=== PATIENT | male | born 1945 | race Caucasian/White ===

== ENCOUNTER 2020-11-15 01:35 | Inpatient (IN) | payer OTHER ==
[~2020-11-15] VITALS: Ht 182.9 cm; Wt 64.2 kg
[2020-11-15] VITALS (10 sets, daily range): BP systolic 108–140; BP diastolic 45–66
[~2020-11-15 01:35] MED LIST: UNASYN 3 GM VIAL3 G1 IV
[2020-11-15 03:11] LABS: LYMPHOCYTES 9.7 % (24.0-44.0); RDW 14.6 % (10.5-14.5)
[2020-11-15 03:13] LABS: ABSOLUTE NEUTROPHILS 9.3 thou/uL (1.4-8.2); BASOPHILS 0.8 % (0.0-2.0); EOSINOPHILS 0.9 % (0.0-3.0); HEMOGLOBIN 6.6 gm/dL (14.0-18.0); MCH 29.7 pg (26.0-34.0); MCHC 34.1 g/dL (28.0-37.0); MCV 87.3 fL (80.0-100.0); MONOCYTES 5.9 % (1.0-8.0); PLATELET COUNT 583 thou/uL (150-400); POLYS 82.7 % (36.0-66.0); RBC 2.21 mil/uL (4.50-6.00); WBC 11.2 thou/uL (4.0-11.0)
[2020-11-15 03:14] LABS: CALCIUM 8.9 mg/dL (8.5-10.1); CREATININE 2.8 mg/dL (0.7-1.3); POTASSIUM 4.3 mmol/L (3.5-5.1)
[2020-11-15 03:20] LABS: ALBUMIN 2.1 g/dL (3.4-5.0); TOTAL BILIRUBIN 0.6 mg/dL (0.2-1.0); TOTAL PROTEIN 7.9 g/dL (6.4-8.2)
[2020-11-15 03:23] LABS: HEMATOCRIT 19.3 % (42.0-52.0)
[2020-11-15 05:16] LABS: INR 1.19; PROTIME 12.9 Seconds (10.5-12.1)
--- NOTE | 2020-11-15 07:17 | NUR ---
PT ARRIVED TO THE UNIT AT AROUND 0545 HRS. ORIENTED TO ROOM, STAFF AND USE OF CALL LIGHT. HE IS ALERT AND ORIENTED X 4. CONSENTS SIGNED. IV ABTS INFUSING.FALL ED PROVIDED, PREC IN PLACE.DENIES PAIN.VSS.REPORT GIVEN TO SHANNON CONWAY RN AT AROUND 0700 HRS.
[2020-11-15 09:52] LABS: FOLIC ACID 17.1 ng/mL (8.6-58.9)
[2020-11-15 11:17] LABS: HEMOGLOBIN 6.7 gm/dL (14.0-18.0)
[2020-11-15 11:19] LABS: HEMATOCRIT 20.9 % (42.0-52.0)
[2020-11-15 11:30] LABS: % SATURATION 12 % (20-39); IRON 14 ug/dL (65-175); TIBC 120 ug/dL (250-450)
--- NOTE | 2020-11-15 12:07 | NUR ---
Assumed pt care at 7am.Pt in bed alert and oriented x4. Assessment completed. vss. Pt informed about receiving blood tranfusion today. He wanted to talk to the doctor before giving blood. He later said he doesn't want antibiotic eithr po or iv. Addis shell shop supervisor here. Order noted. Consult called to doctors and message left. Blood transfusion started at 1105. No further c/o. Will continue to monitor.
--- NOTE | 2020-11-15 15:25 | NUR ---
ASSUMED PT CARE AT 1500. PT IS ALERT & ORIENTED X4. PT HAS IV SITE ON R AC AND L AC. PT IS ON TELE MONITOR ON. PT USES URINAL. PT IS ACCUCHECK ACHS. WILL CONTINUE TO MONITOR PT. FOLLOW POC.
[2020-11-15 16:46] LABS: HEMOGLOBIN 7.7 gm/dL (14.0-18.0)
--- NOTE | 2020-11-16 02:51 | NUR ---
ASSESSED AT START OF SHIT. PT RESTING IN BED. DENIES PAIN, N/V. IV INTACT FLUIDS INFUSING. CRITICAL BLOOD CULTURES GRAM POSITIVE COCCI ONCALL POT PRESS OPERATOR NOTIVE. PT ON IV ABX. FALL PREC IN PLACE AND URINAL AT BEDSIDE.
[2020-11-16 05:07] LABS: ABSOLUTE NEUTROPHILS 6.9 thou/uL (1.4-8.2); BASOPHILS 0.4 % (0.0-2.0); EOSINOPHILS 1.6 % (0.0-3.0); HEMATOCRIT 22.2 % (42.0-52.0); HEMOGLOBIN 7.5 gm/dL (14.0-18.0); LYMPHOCYTES 11.7 % (24.0-44.0); MCH 30.1 pg (26.0-34.0); MCV 88.7 fL (80.0-100.0); MONOCYTES 5.4 % (1.0-8.0); POLYS 80.9 % (36.0-66.0); RDW 13.9 % (10.5-14.5); WBC 8.6 thou/uL (4.0-11.0)
[2020-11-16 05:42] LABS: PLATELET COUNT 423 thou/uL (150-400)
[2020-11-16 05:55] LABS: CALCIUM 8.3 mg/dL (8.5-10.1); CREATININE 2.7 mg/dL (0.7-1.3); POTASSIUM 4.6 mmol/L (3.5-5.1)
[2020-11-16 08:19] VITALS: BP 132/71
--- NOTE | 2020-11-16 14:17 | NUR ---
Case opened to follow for dc planning. Consult rec'd that pt is homeless. Meter Reading Clerk visited with the pt at bedside and he is a&ox4. He lives in a hotel 6 as it is more affordable than rent. He struggles financially. He use [employer] for transport or has his sons ban/leena bring food by. He does not drive. 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 He is being treated for bacteremia. MRI rt foot pending. Nursing to add therapy evals but prior to admission the pt was indep with gait and adl's and does not use any dme. He has a cell phone and public policy coordinator at bedside and notes he has updated his sons. They are his emergency contacts if needed. Possible need for hh/dme or SNF discussed. He is not interested in SNF or ltc placement at this time but will let cm know if he decides otherwise. He may need a ride at dc. He uses [facility]. DC time frame is uncertain. Cm to follow along for possible dme or hh referral.
--- NOTE | 2020-11-16 17:08 | NUR ---
ASSUMED CARE OF PT AT 0700 THIS MORNING. PT IS A/OX4 HAVING PAIN FROM CELLULITIS IN RT FOOT. RT FOOT HAS GREAT TOE AMPUTATION. PT DOESN'T SPEAK MUCH AND DOES NOT LIKE TO INTERACT. ASSESSMENTS NOTED IN CHART AND OTHERWISE UNREMARKABLE. CALL LIGHT AND OTHER NEEDS ARE WITHIN REACH. FALL PRECAUTIONS ARE WITHIN PLACE. PT HAS MRI SCHEDULED THIS MORNING. IV IN RT AC WITH NS AT 100ML/HR. MEDS AND TX GIVEN NEEDED AND SCHEDULED. WILL MONITOR AND NOTE ANY CHANGES.
[2020-11-16 17:16] VITALS: BP 137/65
[2020-11-16 20:00] VITALS: BP 130/65
[2020-11-17 01:06] LABS: GLYCOHEMOGLOBIN (HGB A1C) 6.7 % (4.8-5.6)
--- NOTE | 2020-11-17 02:19 | NUR ---
ASSESSED AT START OF SHIFT. PT RESTING IN BED. IV INTACT AND FLUIDS INFUSING. URINAL AT BEDSIDE. PT DENIES PAIN, N/V. FALL PREC IN PLACE AND CALL LIGHT AT REACH. WILL CONT TO MONITOR.
[2020-11-17 03:50] VITALS: BP 136/67
[2020-11-17 05:50] LABS: ABSOLUTE RETIC COUNT 0.0324 10^6/uL; OBSERVED RETIC COUNT 0.91 % (0.6-2.6)
[2020-11-17 07:34] VITALS: BP 134/51
--- NOTE | 2020-11-17 10:31 | 2DMMODE ---
[facility] [address] [place] [address] 2 D/M-MODE ECHOCARDIOGRAM Name: SAUD FITZGERALD Room #: 433-I ADM IN ..#: [id number] Admission: 11/15/20 Attend Phys: Ramon Sheehan MD Discharge: Date of : 43 Report #: [id number] THIS REPORT FOR: cc: [facility] - Clinic physician unknown [facility] - Clinic physician unknown Hansel Cr MD [facility] ~ APPROVED REPORT Study performed: 11/17/2020 09:39:44 EXAM: Comprehensive 2D, Doppler, and color-flow Echocardiogram Patient Location: Bedside Room #: [facility] Status: routine BSA: 1.85 HR: 63 bpm BP: 136/67 mmHg Rhythm: NSR Other Information Study Quality: Adequate Indications Diabetes Bacteremia 2D Dimensions IVC: 16.00 mm Volumes Left Atrial Volume (Systole) Single Plane 4CH: 33.75 mL Single Plane 2CH: 46.03 mL LA ESV Index: 23.00 mL/m2 Aortic Valve AoV Peak Connor.: 1.27 m/s AO Peak Gr.: 6.42 mmHg LVOT Max P.59 mmHg LVOT Max V: 1.07 m/s Mitral Valve E/A Ratio: 0.9 MV Decel. Time: 323.22 ms MV E Max Connor.: 1.09 m/s MV A Connor.: 1.15 m/s [facility] [address] [place] [address] 2 D/M-MODE ECHOCARDIOGRAM Name: SAUD FITZGERALD Room #: 433-I ADM IN [facility].#: [id number] Admission: 11/15/20 Attend Phys: Ramon Sheehan, Discharge: Date of : 43 Report #: [id number] MV PHT: 93.73 ms IVRT: 106.11 ms Pulmonary Vein P Vein S: 0.81 m/s P Vein A: 0.34 m/s P Vein D: 0.52 m/s P Vein A Dur.: 120.0 msec P Vein S/D Ratio: 1.56 Left Ventricle The left ventricle is normal size. There is normal LV segmental wall motion. There is normal left ventricular wall thickness. Left ventricular systolic function is normal. The left ventricular ejection fraction is within the normal range. LVEF is 55-60%. Mild diastolic dysfunction Right Ventricle The right ventricle is normal size. The right ventricular systolic function is normal. Atria The left atrium size is normal. The right atrium size is normal. Aortic Valve The aortic valve is normal in structure. No aortic regurgitation is present. There is no aortic valvular stenosis. Mitral Valve The mitral valve is normal in structure. Mild mitral regurgitation. No evidence of mitral valve stenosis. Tricuspid Valve The tricuspid valve is normal in structure. There is no tricuspid valve regurgitation noted. Pulmonic Valve The pulmonary valve is normal in structure. There is no pulmonic valvular regurgitation. Great Vessels The aortic root is normal in size. IVC is normal in size and collapses >50% with inspiration. Pericardium There is no pericardial effusion. [facility] [address] [place] [address] 2 D/M-MODE ECHOCARDIOGRAM Name: SAUD FITZGERALD Room #: 433-I [facility] IN [facility]#: [id number] Admission: 11/15/20 Attend Phys: Ramon Sheehan, Discharge: Date of : 43 Report #: [id number] <Conclusion> Left ventricular systolic function is normal. There is normal LV segmental wall motion. LVEF is 55-60%. Mild diastolic dysfunction The aortic valve is normal in structure. No aortic regurgitation or stenosis The mitral valve is normal in structure. Mild mitral regurgitation. Pulmonary artery pressure could not be reliably ascertained There is no pericardial effusion. <ELECTRONICALLY SIGNED> By: Hansel Cr MD, FACC 11/17/20 103 30 103 Hansel Cr MD, FACC /INF
[2020-11-17 11:02] LABS: CALCIUM 7.8 mg/dL (8.5-10.1); CREATININE 2.2 mg/dL (0.7-1.3); POTASSIUM 4.7 mmol/L (3.5-5.1)
--- NOTE | 2020-11-17 11:02 | NUR ---
ON-GOING ASSESSMENT: CM REVIEWED CHART. PT REMAINS ON IV ANBX AT THIS TIME AND REPEAT CULTURES ARE PENDING. ID MANAGING IV ANBX. PT IS TO HAVE AN ECHO TODAY. PT IS HOPING TO RETURN BACK TO HIS HOTEL 6 AT THE TIME OF DISCHARGE. CM WILL CONTINUE TO FOLLOW TO ASSIST NEEDED AND AWAITING PHYSICAL THERAPY EVAL TO DETERMINE IF HE HAS AND DME/HH NEEDS.
[2020-11-17 11:58] VITALS: BP 144/69
--- NOTE | 2020-11-17 12:22 | HC ---
[facility] [place] [address] [place] [address] CONSULTATION Name: SAUD FITZGERALD Room #: 433-I ADM IN .R.#: [id number] Admission: 11/15/20 Attend Phys: Ramon Sheehan MD Discharge: Date of : 43 Report #: [id number] THIS REPORT FOR: cc: [facility] - Clinic physician unknown [facility] - Clinic physician unknown Tristan Arnold MD ~ DATE OF SERVICE: 11/16/2020 INFECTIOUS DISEASE CONSULTATION DATE OF CONSULTATION: 11/16/2020 ATTENDING PHYSICIAN: Dr. Ramon Sheehan REASON FOR EVALUATION: Deep seated infection involving the right foot. HISTORY OF PRESENT ILLNESS: The patient examined. This is a 75-year-old gentleman with a history of diabetes mellitus. 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 He notes he has had previous great and second toe amputations as well who had increasing redness, pain, described as normal sensation over 2-3 days prior to his presentation, he had some low-grade temperature elevations and significant pulmonary related complaints. No GI issues. Initial evaluation showed hemoglobin of 6.6, did receive transfusion. Lactic acid 0.7, elevated creatinine at 2.8, albumin of 2.1, markedly elevated CRP. Coronavirus testing was negative. Venous Dopplers showed evidence of DVT. Plain films followed up by MRI of the foot showed multifocal areas of marrow edema, base of the proximal diaphysis of the 2nd through 4th metatarsals, base of the fifth metatarsal was felt to be more typical of neuropathic changes. It is notable clinically as a Charcot joint versus osteomyelitis. At the time of admission, blood cultures were collected 04/05 with growth of Staphylococcus aureus. There is some evidence may have arterial occlusive disease as well, so empirically started on combination therapy with Zosyn and vancomycin. ALLERGIES: SITAGLIPTIN. CURRENT MEDICATIONS: Include, pantoprazole, vancomycin, Zosyn, hydrocodone, ondansetron as needed. PAST MEDICAL HISTORY: As described above, diabetes mellitus complicated by chronic renal failure and vasculopathy, also has Charcot changes and previous toe amputations on the right, trigeminal neuralgia, previous cholecystectomy, recurrent MRSA infections. SOCIAL HISTORY: Nonsmoker, no ethanol. [address] [address] CONSULTATION Name: SAUD FIT[facility]GERALD [facility].#: [id number] Admission: 11/15/20 Attend Phys: Ramon Sheehan MD Discharge: Date of : 43 Report #: [id number] FAMILY HISTORY: Noncontributory. REVIEW OF SYSTEMS: Otherwise, unremarkable. PHYSICAL EXAMINATION: GENERAL: Appears somewhat chronically ill, undernourished. He is at least mildly encephalopathic, mild to moderate distress. VITAL SIGNS: Temperature 98.4, pulse 64, respirations 16, blood pressure 132/71. SKIN: Warm, dry, no rashes. HEENT: Normocephalic. Extraocular muscles intact. NECK: Supple. LUNGS: Clear to auscultation bilaterally. HEART: Regular, borderline bradycardic. I do not appreciate a murmur. ABDOMEN: Soft, nondistended, nontender. EXTREMITIES: Distal right lower extremity has a well-healed amputation site. There is a moderate degree of surface inflammation noted as manifested by erythema and edema. There is no evidence of ulcers or bullous lesions at this point. GENITOURINARY AND RECTAL: Deferred. LABORATORY DATA: MRI of the foot as described above. Blood cultures / with gram-positive cocci confirmed to be Staph aureus. Electrolytes: Sodium 133, potassium 4.6, chloride 101, bicarbonate 17, anion gap of 15, BUN and creatinine 50 and 2.7, glucose of 167. CBC: White count of 8.6, H and H 7.5 and 22. 2, platelets of 423. Ferritin elevated at 1569. Procalcitonin 0.65. ASSESSMENT AND PLAN: Suspected deep infection involving the right foot. It is difficult to ascertain on CT whether there is a component of osteomyelitis, but it is a Staphylococcus aureus septicemia. We will continue therapy with vancomycin pending further susceptibilities. We will also repeat blood cultures noted. Surgery evaluation awaiting test results, seems disinclined to do any procedure at this time. We will continue to monitor expectantly at risk for clinical deterioration and distal seeding of infection ____ occult pyogenic infection. <ELECTRONICALLY SIGNED> By: Tristan Arnold MD 11/17/20 1222 [id number] [id number] Tristan Arnold MD /nt
--- NOTE | 2020-11-17 15:50 | NUR ---
PT ASSESSED AT START OF SHIFT. STATES FEELING BETTER. POSITIVE FOR MRSA IN THE BLOOD. ISOLATION STARTED. NO C/O FOOT PAIN. SOME SWELLING NOTED. DR. HECTOR IN TO SEE PT AND PLAN FOR DISCHARGE ANTIBIOTICS. PT WORKED W/ THERAPY AND DID WELL.
[2020-11-17 16:50] VITALS: BP 151/72
[2020-11-17 20:03] VITALS: BP 143/66
[2020-11-17 22:06] LABS: IgA 649 mg/dL (61-437); IgG 773 mg/dL (603-1613); IgM 51 mg/dL (15-143)
--- NOTE | 2020-11-18 03:51 | NUR ---
PT ALERT AND ORIENTED.UP WITH SBA. DENIES PAIN. DEPPRESSED ABOUT HAVING SURGERY TO HIS FOOT.PT NPO AFTER MIDNOC FOR I/D OF R FOOT.FOOT WITH SWELLING AND ERYTHEMA.ROOM AIR.
[2020-11-18 05:39] LABS: ABSOLUTE NEUTROPHILS 6.2 thou/uL (1.4-8.2); HEMOGLOBIN 6.7 gm/dL (14.0-18.0); MONOCYTES 5.9 % (1.0-8.0)
[2020-11-18 05:41] LABS: BASOPHILS 0.4 % (0.0-2.0); EOSINOPHILS 0.8 % (0.0-3.0); HEMATOCRIT 20.1 % (42.0-52.0); LYMPHOCYTES 13.2 % (24.0-44.0); MCH 29.6 pg (26.0-34.0); MCHC 33.5 g/dL (28.0-37.0); MCV 88.2 fL (80.0-100.0); PLATELET COUNT 387 thou/uL (150-400); POLYS 79.7 % (36.0-66.0); RBC 2.28 mil/uL (4.50-6.00); RDW 13.6 % (10.5-14.5); WBC 7.8 thou/uL (4.0-11.0)
[2020-11-18 07:12] LABS: ALBUMIN 1.5 g/dL (3.4-5.0); CALCIUM 7.9 mg/dL (8.5-10.1); CREATININE 2.1 mg/dL (0.7-1.3); POTASSIUM 4.3 mmol/L (3.5-5.1); TOTAL BILIRUBIN 0.4 mg/dL (0.2-1.0); TOTAL PROTEIN 6.5 g/dL (6.4-8.2)
[2020-11-18 08:07] LABS: HEMOGLOBIN 6.9 g/dL (13.0-17.7)
[2020-11-18 08:16] VITALS: BP 147/67
--- NOTE | 2020-11-18 12:06 | NUR ---
ASSUMED PT CARE AROUND 0700. PT ALERT X ORIENTED X 4. ON ROOM AIR, VOIDS/URINALS. IV RT AC/NS/100MLS/HR. ON ISOLATION FOR MRSA. NPO SINCE MIDNIGHT FOR PROCEDURE. ACHS.NO CODE.PT'S HB LEVEL 6.7, BLOOD TRANSFUSION ORDERED, BLOOD BANK CALLED AT 1145 SAYING BLOOD IS READY, BUT PATIENT WENT DOWNSTAIRES FOR PROCEDURE AROUND 1130. RN ENQUIRED WITH THE PODIATIST REGARDING BLOOD TRANSFUSION, SAID, NOT NECESSARY TO BE GIVEN AT THE FLOOR BEFORE THE PROCEDURE, BLOOD TRANSFUSION CONSENT SIGNED AND TOOK DOWNSTAIRS WHEN THE PT WENT FOR THE PROCEDURE.
--- NOTE | 2020-11-18 12:15 | NUR ---
ON-GOING ASSESSMENT: CM REVIEWED CHART AND SPOKE WITH ATTENDING. PER ATTENDING PT WILL REMAIN HERE THROUGH THE WEEKEND. PT IS GETTING I AND D TODAY AND REMAINS ON IV ANBX. CM WILL CONTINUE TO FOLLOW TO ASSIST NEEDED. PT STILL ANTICIPATES DISCHARGING BACK TO HIS HOTEL AT THE TIME OF DISCHARGE AND THEN HOPEFULLY SOON STATING HE WILL MOVE WITH DAUGHTER IN [place] ONCE HE RECEIVES HIS CHECK.
[2020-11-18 13:08] LABS: KAPPA FREE LIGHT CHAINS 180.9 mg/L (3.3-19.4); KAPPA/LAMBDA RATIO 1.01 (0.26-1.65); LAMBDA FREE LIGHT CHAINS 179.8 mg/L (5.7-26.3)
[2020-11-18 13:20] VITALS: BP 144/71
[2020-11-18 13:45] VITALS: BP 152/73
[2020-11-18 15:08] LABS: GLOBULIN TOTAL 3.9 g/dL (2.2-3.9); M-SPIKE Not Observed g/dL (Not Observed)
[2020-11-18 15:36] VITALS: BP 155/71; BP 162/78
[2020-11-18 21:54] VITALS: BP 157/74
--- NOTE | 2020-11-19 02:38 | NUR ---
POST OP DRG TO RIGHT FOOT IS C/D/I. PT DENIES PAIN. DENIES NAUSEA OR VOMITING. IVF AND ABTS INFUSING PER ORDERS. VOIDING WELL PER URINAL.ISOLATION FOR MRSA. CALLS WITH NEEDS. NO FURTHER CONCERNS.
[2020-11-19 06:26] LABS: HEMATOCRIT 24.2 % (42.0-52.0); HEMOGLOBIN 7.9 gm/dL (14.0-18.0); MCH 29.2 pg (26.0-34.0); MCHC 32.7 g/dL (28.0-37.0); MCV 89.1 fL (80.0-100.0); RBC 2.72 mil/uL (4.50-6.00); RDW 13.4 % (10.5-14.5); WBC 7.3 thou/uL (4.0-11.0)
[2020-11-19 06:40] LABS: CALCIUM 8.1 mg/dL (8.5-10.1); CREATININE 1.8 mg/dL (0.7-1.3); MAGNESIUM 1.7 mg/dL (1.8-2.4); POTASSIUM 4.2 mmol/L (3.5-5.1)
[2020-11-19 07:07] VITALS: BP 142/67
[2020-11-19 11:17] VITALS: BP 161/79
--- NOTE | 2020-11-19 11:49 | O ---
[facility] [place] [address] [place] [address] OPERATIVE REPORT Name: SAUD FITZGERALD Room #: 433-I ADM IN M.R.#: [id number] Admission: 11/15/20 Attend Phys: Ramon Sheehan MD Discharge: Date of : 43 Report #: [id number] THIS REPORT FOR: cc: [facility] - Clinic physician unknown [facility] - Clinic physician unknown Nelson Abarca DPM ~ PREOPERATIVE DIAGNOSIS: Right foot infection versus Charcot. POSTOPERATIVE DIAGNOSIS: Right foot infection versus Charcot. PROCEDURE: I and D right foot. ANESTHESIA: IV sedation with local block consisting of 8 mL of 0.5% Marcaine. DESCRIPTION OF PROCEDURE: The patient was dressed and prepped in the usual manner right leg. Attention was directed to the right foot dorsal medial aspect, approximately a 4 cm incision was made. I opened up with a Raegan and dug deep into the tissue along the bone and deep tissue as well and sent it for aerobic, anaerobic, fungal. It should be noted that there was some fluid in this area that appeared somewhat purulent, difficult to tell if this is inflammation or purulence. The bone in this area was very soft and friable consistent with Charcot or osteomyelitis. The wound was then closed loosely proximally with a 2-0 nylon. I left the distal aspect opened, so it could drain. The surgery was to determine whether there is infection in his midfoot or the Charcot, so we could treat it definitively. <ELECTRONICALLY SIGNED> By: Nelson Abarca DPM 11/19/20 1149 1129 1208 Nelson Abarca DPM /nt
[2020-11-19 15:56] VITALS: BP 137/63
--- NOTE | 2020-11-19 17:04 | NUR ---
PT ASSESSED AT START OF SHIFT. RT FOOT SURGICAL DSNG INTACT. WOUND CARE CONSULT PLACED AND DR. PATTON IN TO SEE PT THIS AFTERNOON. PT DENIES ANY FOOT PAIN. EATING AND DRINKING WELL. USING URINAL AND HAS NOT PUT WT ON FOOT.
[2020-11-19 19:35] VITALS: BP 139/67; BP 88/63
[2020-11-19 21:10] VITALS: BP 128/72
--- NOTE | 2020-11-20 03:27 | NUR ---
PT IS PLEASANT AND COOPERATIVE. AFEBRILE, USING URINAL. HS BLOOD SUGAR SPOT CHECK OF 168.DENIES PAIN. POST OP DRSG TO RIGHT FOOT. CONTINUES ON IVF AND ABTS. NO FURTHER CONCERNS.
[2020-11-20 03:45] VITALS: BP 155/84
[2020-11-20 06:56] LABS: HEMATOCRIT 22.8 % (42.0-52.0); HEMOGLOBIN 7.6 gm/dL (14.0-18.0); MCH 29.4 pg (26.0-34.0); MCHC 33.3 g/dL (28.0-37.0); MCV 88.2 fL (80.0-100.0); RBC 2.59 mil/uL (4.50-6.00); RDW 13.8 % (10.5-14.5); WBC 7.9 thou/uL (4.0-11.0)
[2020-11-20 07:14] LABS: CALCIUM 8.1 mg/dL (8.5-10.1); CREATININE 1.8 mg/dL (0.7-1.3); MAGNESIUM 1.7 mg/dL (1.8-2.4); POTASSIUM 4.6 mmol/L (3.5-5.1)
[2020-11-20 09:10] VITALS: BP 151/73
[2020-11-20 11:52] VITALS: BP 152/72
[2020-11-20 15:00] VITALS: BP 149/66
--- NOTE | 2020-11-20 16:44 | NUR ---
A/O X 4. ROOM AIR. BEDBOUND, RIGHT AC IV WITH NS INFUSING @ 100 MLS/HR. NS ON TELE. USES URINAL IN BED. NO PAIN. IV MAG GIVEN. ON CONTACT ISOLATION FOR MRSA.
[2020-11-20 19:53] VITALS: BP 157/73
--- NOTE | 2020-11-21 01:27 | NUR ---
PT ALERT AND ORIENTED. DEPRESSED AFFECT. DENIES PAIN. VOIDING PER URINAL. AFEBRILE.REPORTS GOOD INTAKE, POST OP DRSG TO R FOOT-ELEVATING BLE. NO FURTHER CONCERNS.
[2020-11-21 04:21] VITALS: BP 141/64
[2020-11-21 05:29] LABS: HEMATOCRIT 24.3 % (42.0-52.0); MCH 29.2 pg (26.0-34.0); MCHC 33.1 g/dL (28.0-37.0); MCV 88.3 fL (80.0-100.0); RBC 2.75 mil/uL (4.50-6.00); RDW 13.7 % (10.5-14.5); WBC 6.5 thou/uL (4.0-11.0)
[2020-11-21 05:43] LABS: CALCIUM 7.8 mg/dL (8.5-10.1); CREATININE 1.9 mg/dL (0.7-1.3); MAGNESIUM 1.9 mg/dL (1.8-2.4); POTASSIUM 4.9 mmol/L (3.5-5.1)
[2020-11-21 08:54] VITALS: BP 152/64
--- NOTE | 2020-11-21 11:25 | NUR ---
ON-GOING ASSESSMENT: CM REVIEWED CHART. PT HAD I AND D SATURDAY. PT REMAINS ON IV ANBX CURRENTLY AND ID IS FOLLOWING FOR FURTHER RECOMMENDATIONS. CM SPOKE WITH PATIENT HE IS CURRENTLY LIVING IN A HOTEL 6 BUT MAY REQUIRE MORE THERPAY PRIOR TO GOING HOME AND CM DISCUSSED SNF. PT REPORTS DUE TO HIS BALANCE ISSUE HE FEELS THIS MIGHT BE BEST. CM PROVIDED PATIENT WITH A SNF LIST OF IN-NETWORK FACILITIES FOR PATIENT TO REVIEW. CM WILL CONTINUE TO FOLLOW TO ASSIST NEEDED.
[2020-11-21 13:29] VITALS: BP 137/59
[2020-11-21 16:23] VITALS: BP 154/68
[2020-11-21 19:54] VITALS: BP 150/64
--- NOTE | 2020-11-22 03:02 | NUR ---
PT WAS OBSERVED SITTING UP IN THE RECLINER IN HIS ROOM AT SHIFT CHANGE.PT ALER AND ORIENTED WITH FLAT EFFECT.IVF AND IV ABX ADMINISTERED PER ORDER.DRSG TO HIS R FOOT C/D/I.PT DENIED PAIN SO FAR.SR ON THE MONITOR.ROZINA LOWER EXT ELEVATED WHILE PT IS IN BED.FALL AND ISOLATION PRECAUTION MAINTAINED.PT ABLE TO MAKE HIS NEEDS KNOWN.CALL LIGHT WITHIN REACH.
[2020-11-22 04:57] VITALS: BP 139/61
[2020-11-22 05:24] LABS: HEMATOCRIT 23.3 % (42.0-52.0); HEMOGLOBIN 7.7 gm/dL (14.0-18.0); MCH 29.4 pg (26.0-34.0); MCHC 33.3 g/dL (28.0-37.0); MCV 88.1 fL (80.0-100.0); RBC 2.64 mil/uL (4.50-6.00); RDW 13.8 % (10.5-14.5); WBC 7.5 thou/uL (4.0-11.0)
[2020-11-22 07:17] VITALS: BP 152/66
--- NOTE | 2020-11-22 09:12 | NUR ---
ON-GOING ASSESSMENT: CM REVIEWED CHART AND SPOKE WITH ATTENDING. PT IS PROGRESSING TOWARDS GOALS OF DISCHARGE. CM FAXED UPDATED CLINICAL TO [facility] AND UPDATED LIASON THAT PATIENT WILL LIKELY DISCHARGE ON IV DAPTOMYCIN AND THE IV VANC WAS DISCONTINUED. CM ALSO NOTIFIED ATTENDING IF PATIENT IS GOING ON IV ANBX THAT A PICC LINE NEEDS TO BE ORDERED. AWAITING INSURANCE AUTH AT THIS TIME. CM WILL CONTINUE TO FOLLOW.
[2020-11-22 09:28] LABS: CALCIUM 8.1 mg/dL (8.5-10.1); CREATININE 1.8 mg/dL (0.7-1.3); MAGNESIUM 1.8 mg/dL (1.8-2.4); POTASSIUM 4.3 mmol/L (3.5-5.1)
--- NOTE | 2020-11-22 10:43 | NUR ---
A/O X 4. ROOM AIR. ONE ASSIST WITH TRANSFERS TO CHAIR, STAND AND PIVOT, NON WEIGHT BEARING ON RIGHT FOOT, RIGHT AC IV WITH NS INFUSING @ 100 MLS/HR, SR ON TELE, RIGHT FOOT WRAPPED WITH CORIN WRAP-NO DRAINAGE NOTED, ON CONTACT ISO FOR MRSA, NO PAIN CURRENTLY.
--- NOTE | 2020-11-22 16:30 | NUR ---
VAT CONSULTED FOR PICC PLACEMENT. PT'S LABS,MEDS,HX,ORDER AND CONSENT VERIFIED. MOTNY BRACHIAL WAS WIDELY PATENT WITH USG. 4FR BIOFLO PICC TRIMMED TO 45CM INSERTED TO 1CM EXTERNAL. STAT CXR ORDERED. PT TOLERATED WELL
--- NOTE | 2020-11-22 16:32 | NUR ---
CXR CONFIRMED PICC PLACEMENT, RELEASED FOR IMMEDIATE USE PER PROTOCOL.
[2020-11-22 19:15] VITALS: BP 155/71
[2020-11-23 03:10] VITALS: BP 169/83
--- NOTE | 2020-11-23 07:55 | NUR ---
PT ALERT AND ORIENTED WITH A FLAT EFFECT.DENIED PAIN ALL SHIFT.NWB ON HIS R FOOT.ROZINA FEET ELEVATED WHILE PT IS IN BED.PT CONT ON IVF AND IV ABX ORDERED.FALL AND ISOLATION PRECAUTIONS MAINTAINED.REPORT GIVEN TO AM NURSE.
[2020-11-23 08:24] VITALS: BP 168/83
[2020-11-23 12:14] VITALS: BP 154/59
[2020-11-23 16:10] VITALS: BP 159/77
--- NOTE | 2020-11-23 16:50 | NUR ---
PT ASSESSED AT START OF SHIFT. NO C/O FOOT PAIN. UP IN THE CHAIR W/ THERAPY. PT STATES DR. WHITTEN TALKED ABOUT A FOOT SHOE AND BEING ABLE TO BEAR WT ON FOOT. AWAITING INSURANCE AUTH FOR ANTIBIOTICS.
[2020-11-23 19:35] VITALS: BP 164/82
--- NOTE | 2020-11-24 06:19 | NUR ---
PT SEEMS ALOT CALMER. TOLD ME HE HAS BEEN ABLE TO SLEEP BETTER THE LAST FEW NIGHTS. VSS. DENIES PAIN. DRSG TO RIGHT FOOT IS C/D/I.
[2020-11-24 07:31] VITALS: BP 156/72
--- NOTE | 2020-11-24 09:05 | HC ---
[facility] [place] [address] [place] [address] CONSULTATION Name: SAUD FITZGERALD Room #: 433-I ADM IN ..#: [id number] Admission: 11/15/20 Attend Phys: Ramon Sheehan MD Discharge: Date of : 43 Report #: [id number] THIS REPORT FOR: cc: [facility] - Clinic physician unknown [facility] - Clinic physician unknown Varun Sandoval MD ~ DATE OF SERVICE: 11/19/2020 DATE OF EVALUATION: 11/19/2020 CHIEF COMPLAINT: Diabetic foot wound infection to the right foot. HISTORY OF PRESENT ILLNESS: This is a 75-year-old male patient who was admitted to the hospital with a history of an MRSA infection to the right foot. He has had increasing pain, swelling and drainage. He has undergone incision and drainage of the right foot by Dr. Abarca. I have been asked to see him with regard to follow up wound care. The patient states he lives alone in [place] and is opposed to any medical actions that would result in the loss of his leg as he would not be able to live independently and have a lifestyle that he wishes. He denies pain at this time. PAST MEDICAL HISTORY: Type 2 diabetes mellitus, history of trigeminal neuralgia, history of MRSA. He has history of cataracts. He has had right first and second toe amputations in the past. SOCIAL HISTORY: The patient denies current alcohol or tobacco use. He lives alone in a cabin in [place]. MEDICATIONS: Include pantoprazole, polyethylene glycol, vancomycin. ALLERGIES: JANUVIA. FAMILY HISTORY: Noncontributory. REVIEW OF SYSTEMS: CONSTITUTIONAL: No fever, chills or weight loss. NEUROLOGICAL: Denies focal weakness, numbness or tingling. EYES: The patient denies visual changes, redness or drainage. ENT: The patient denies earache, nasal drainage or sore throat. CARDIOVASCULAR: Denies chest pain, palpitations, diaphoresis. PULMONARY: The patient denies cough, shortness of breath. GASTROINTESTINAL: Denies nausea, vomiting, diarrhea or abdominal pain. ORTHOPEDIC: The patient is aware of the surgical wound of the right foot. Others systems in a 14-point review of systems are negative. PHYSICAL EXAMINATION: [facility] [address] [place] [address] CONSULTATION Name: SAUD FITZGERALD Room #: 433-I [facility] IN [facility]#: [id number] Admission: 11/15/20 Attend Phys: Ramon Sheehan MD Discharge: Date of : 43 Report #: [id number] VITAL SIGNS: At this time include temperature 99, pulse 67, respiratory rate of 16, blood pressure 139/67. GENERAL: This is a well-developed, well-nourished patient, appears to be in no distress. HEENT: Head normocephalic. Nose and throat are clear. NECK: Supple. LUNGS: Clear. HEART: Regular rhythm. ABDOMEN: Soft, bowel sounds present. EXTREMITIES: Lower extremities demonstrate surgical incision to the right medial foot. There is some serosanguineous drainage, but appears to be well intact. No surrounding bogginess, erythema or tenderness. NEUROLOGIC: The patient is alert, oriented, appropriate. LABORATORY DATA: Includes white blood cell count 7.9 with hemoglobin 6.7. Sodium 136, potassium 4.2, chloride 105, CO2 of 18, BUN 26, creatinine 1.8. MRI demonstrates marrow edema throughout the base and proximal diaphysis of the second through fourth metatarsals and the base of the fifth metatarsal, likely representing a Charcot change. CLINICAL IMPRESSION: 1. Right foot infection versus Charcot change, status post incision and drainage by Dr. Abarca. 2. Type 2 diabetes with neuropathy. 3. Generalized debility. 4. Moderate to severe protein calorie malnutrition, albumin 2.5. RECOMMENDATIONS: At this point in time, recommend topical Xeroform and dry gauze to the right foot daily. Antibiotics per ID pending cultures from the surgical procedure. Continue with aggressive management of underlying medical issues and nutritional support. I appreciate being asked to see him in consultation. <ELECTRONICALLY SIGNED> By: Varun Sandoval MD 11/24/20 0905 1724 0021 Varun Sandoval MD /nt
--- NOTE | 2020-11-24 09:25 | NUR ---
Assumed care of pt at 0700. Pt a&ox4. Dressing c/d/i. Denies pain. IVF and IV antibiotics infusing. RA. Call light within reach. Fall precautions in place. Will continue to monitor.
--- NOTE | 2020-11-24 11:18 | NUR ---
DISCHARGE NOTE: ABRAN reviewed chart and spoke with nursing and attending physician. Pt is medically stable for discharge to post-acute care today. ABRAN updated Cliff at [facility]. Per Albertina, they have received insurance auth and can accept pt today. ABRAN updated attending physician. Awaiting completion of discharge ppwk at this time. ABRAN met with pt at bedside to discuss discharge plan and notify of insurance auth. Pt is aware and in agreement with discharge plan. Chart copy requested. [facility] to arrange w/c van transportation and notify SW. SW to notify nursing when transportation has been arranged. SW is following to finalize discharge plan.
[2020-11-24] MEDS ORDERED: ACETAMINOPHEN325 M1 PO (14:25)
[2020-11-24] MEDS ORDERED: HYDROCODON-ACE1 EAC7 PO (14:25)
[2020-11-24] MEDS ORDERED: ROCEPHIN 11 GM/1001 IVPB (14:25)
[2020-11-24] MEDS ORDERED: DAPTOMYCIN500 MG IVPB (14:25)
== END 2020-11-24 16:35 | DRG 871 ==
LOC: ER 01:35 → 4S 03:52 → EROBS 03:52 → 4S 06:08
PROVIDERS: Emergency Medicine; Internal Medicine Hematology & Oncology; Nurse Practitioner; Podiatrist Foot & Ankle Surgery; Specialist; ADMIT Internal Medicine; ATTEND Internal Medicine
PROC: 30233N1 Transfusion of Nonautologous Red Blood Cells into Peripheral Vein, Percutaneous Approach (ICD-10-PCS; principal; 2020-11-15)
PROC: 0Y9M0ZZ Drainage of Right Foot, Open Approach (ICD-10-PCS; 2020-11-19)
PROC: 02HV33Z Insertion of Infusion Device into Superior Vena Cava, Percutaneous Approach (ICD-10-PCS; 2020-11-22)
DX: A41.02 Sepsis due to Methicillin resistant Staphylococcus aureus (principal); E43 Unspecified severe protein-calorie malnutrition; J18.9 Pneumonia, unspecified organism; L03.115 Cellulitis of right lower limb; N17.9 Acute kidney failure, unspecified; N18.4 Chronic kidney disease, stage 4 (severe); M31.9 Necrotizing vasculopathy, unspecified; Z68.1 Body mass index [BMI] 19.9 or less, adult; D64.9 Anemia, unspecified; E86.0 Dehydration; M14.671 Charcot's joint, right ankle and foot; S91.301A Unspecified open wound, right foot, initial encounter; R53.81 Other malaise; E11.40 Type 2 diabetes mellitus with diabetic neuropathy, unspecified; Z66 Do not resuscitate; Z60.2 Problems related to living alone; E11.51 Type 2 diabetes mellitus with diabetic peripheral angiopathy without gangrene; R63.4 Abnormal weight loss; Z90.49 Acquired absence of other specified parts of digestive tract; Z89.421 Acquired absence of other right toe(s); Z86.14 Personal history of Methicillin resistant Staphylococcus aureus infection; Z88.8 Allergy status to other drugs, medicaments and biological substances; Z87.891 Personal history of nicotine dependence; X58.XXXA Exposure to other specified factors, initial encounter; Y93.89 Activity, other specified; Y92.89 Other specified places as the place of occurrence of the external cause; Y99.8 Other external cause status; Z20.822 Contact with and (suspected) exposure to COVID-19
CPT/HCPCS: 10100; 10195; 27000; 50010; 50101; 50386; 56525; 57091; 62110; 62850; 70005

== ENCOUNTER 2020-12-15 15:59 | Inpatient (IN) | payer OTHER ==
[~2020-12-15] VITALS: Ht 182.9 cm; Wt 76.7 kg
[~2020-12-15 15:59] MED LIST changes: +ACETAMINOPHEN325 M1 PO; +DAPTOMYCIN500 MG IVPB; +HYDROCODON-ACE1 EAC7 PO; +ROCEPHIN 11 GM/1001 IVPB
[2020-12-15 16:02] VITALS: BP 158/94
[2020-12-15 17:23] LABS: ABSOLUTE NEUTROPHILS 5.9 thou/uL (1.4-8.2); BASOPHILS 1.3 % (0.0-2.0); EOSINOPHILS 0.9 % (0.0-3.0); HEMATOCRIT 27.6 % (42.0-52.0); HEMOGLOBIN 8.8 gm/dL (14.0-18.0); LYMPHOCYTES 14.2 % (24.0-44.0); MCH 28.1 pg (26.0-34.0); MCHC 31.9 g/dL (28.0-37.0); MCV 88.3 fL (80.0-100.0); MONOCYTES 5.3 % (1.0-8.0); PLATELET COUNT 314 thou/uL (150-400); POLYS 78.3 % (36.0-66.0); RBC 3.12 mil/uL (4.50-6.00); RDW 15.9 % (10.5-14.5); WBC 7.5 thou/uL (4.0-11.0)
[2020-12-15 17:42] LABS: APTT 26.1 Seconds (24.5-32.8); CALCIUM 8.4 mg/dL (8.5-10.1); CREATININE 2.3 mg/dL (0.7-1.3); INR 1.19; POTASSIUM 4.5 mmol/L (3.5-5.1); PROTIME 12.9 Seconds (10.5-12.1)
[2020-12-15 17:57] LABS: ALBUMIN 2.2 g/dL (3.4-5.0); DIRECT BILIRUBIN 0.2 mg/dL (<0.1-0.2); TOTAL BILIRUBIN 0.7 mg/dL (0.2-1.0); TOTAL PROTEIN 8.2 g/dL (6.4-8.2)
[2020-12-16] VITALS (7 sets, daily range): BP systolic 140–153; BP diastolic 63–89
--- NOTE | 2020-12-16 02:02 | NUR ---
Pt arrived from ED approx 0030 via bed accompanied by staff. A/OX4,VS,desats on RA oxygen placed at 2L/NC sats 95%. Denies pain on assessment. Reports been using a RW prior to admission but had to crawl last couple days since he didn't have one to use at friend's house and so weak to walk. Reports he doesn't have a place to live currently and was planning on travelling to [place] for logotherapy but decided to come to the hospital instead.Declines psych consult but ok to consult spiritual care,recently denies depression/SI. Pt came to the hospital with all his personal belongings in a big black suitcase. Skin intact but very dry on RLE and flaky,uses coconut oil on it, c/o soreness on tailbone not open;foam dressing applied for protection. Pt also reports frequent falls,fall safety reinforced and implemented, agrees to call for help as needed. NSR on telemetry. Resting quietly at this time,will continue to monitor pt.
--- NOTE | 2020-12-16 07:11 | EKG ---
[address] [address] ELECTROCARDIOGRAM REPORT Name: SAUD FITZGERALD Room #: 450- ADM IN M.R.#: [id number] Admission: 12/15/20 Attend Phys: Luis Daniel Tse MD Discharge: Date of : 43 Report #: [id number] [facility] ED Test Date: 2020-12-15 Test Time: 16:48:03 Pat Name: SAUD FITZGERALD Department: Room: [facility] Gender: M Assistant Professor Of Mathematics: GEENA : 1945 Requested By: Earl Morales Order Number: [id number] MD: Joseph Dozier Measurements Intervals [place] Rate: 85 P: 60 GA: 128 QRS: -5 QRSD: 119 T: 58 QT: 449 QTc: 534 Interpretive Statements Sinus rhythm Incomplete right bundle branch block Probable anterolateral infarct, old Baseline wander in lead(s) II,aVF No previous ECG available for comparison Electronically Signed On 12-16-2020 7:11:40 CDT by Joseph Dozier [email or web address] <ELECTRONICALLY SIGNED> By: Joseph Dozier MD, [facility] [id number] Joseph Dozier MD, [facility] /EPI
[2020-12-16 08:46] LABS: URINE BILIRUBIN NEGATIVE (Negative); URINE BLOOD 2+ (Negative); URINE CLARITY CLEAR; URINE COLOR YELLOW; URINE GLUCOSE-RANDOM* TRACE (Negative); URINE KETONES NEGATIVE (Negative); URINE LEUKOCYTES NEGATIVE (Negative); URINE NITRITE NEGATIVE (Negative); URINE PROTEIN (DIPSTICK) 2+ (Negative); URINE SPECIFIC GRAVITY 1.025 (1.005-1.035); URINE UROBILINOGEN 0.2 E.U./dl (0.2-1.0)
[2020-12-16 08:55] LABS: URINE CREATININE-RANDOM* 35.7 mg/dL; URINE PROTEIN-RANDOM* 376.6 mg/dL (<11.9)
[2020-12-16 09:53] LABS: SQUAMOUS None Seen /LPF (0-3)
[2020-12-16 09:54] LABS: CRYSTALS None Seen /LPF (None Seen); FINE GRANULAR CASTS 0-3 Few /LPF (None Seen); HYALINE CASTS 4-10 Moderate /LPF (None Seen); URINE RBC 1-2 Rare /HPF (NONE SEEN); URINE WBC 1-5 Rare /HPF (NONE SEEN)
[2020-12-16 09:55] LABS: BACTERIA 1-9 Few /HPF (None Seen)
--- NOTE | 2020-12-16 12:21 | NUR ---
Recommend liberate diet r/t weight loss and malnutrition. Obtain weights 2x/wk.
--- NOTE | 2020-12-16 14:52 | NUR ---
PT ADMITTED RELATED TO CHF AND GENERALIZED PAIN. CM MET WITH PT AT BEDSIDE THIS DAY. PT APPEARED TO BE A&OX4. CM ROLE INTRODUCED. PT INDICATED HE HAD BEEN AT [facility] PLACE HE HAD GONE THERE ON 11/24 AND HAD DISCHARGED TO THE APARTMENT OF A FRIEND WHERE HE HAD BEEN DURAL MECHANIC. PT INDICATED THAT HE HAS EVERYTHING HE OWNS WITH HIM HERE AND THAT HE PLANS TO TAKE A [employer] BUS TO [place], [place] WHERE THERE IS A COMMUNITY OF PASTORS WHO PROVIDE LOGOTHERAPY LIKELY THE ([facility]). HE INDICAETD HE PLANS TO GOT THERE AND OFFER HIS SERVICES FOR A NOMINAL COST AND LODGING. PT HAD A FWW FOR USE UPON DC. PT INDICATED THAT HE IS ABLE TO AFFORD A BUS TICKET BUT THAT HE WILL LIKELY NEED TRANSPORT TO [facility]. [facility] AT [address] [place] [address]. CM FOLLOWING REGARDING DC PLANNING.
--- NOTE | 2020-12-16 19:55 | NUR ---
Assumed pt care this am vs stable. POC followed with no signs or verbalizations of distress noted. Diet and medications are tolerated well. FAll precautions in place, endorsed to the night nurse.
[2020-12-17 00:34] VITALS: BP 158/86
--- NOTE | 2020-12-17 04:16 | NUR ---
Pt. rested quietly during the night when checked on during frequent rounds. He offers no complaints. Up to the bedside comode with stand by assistance. Bed alarm is on.
[2020-12-17 05:42] LABS: HEMATOCRIT 23.8 % (42.0-52.0); HEMOGLOBIN 7.8 gm/dL (14.0-18.0); MCH 28.8 pg (26.0-34.0); MCHC 32.8 g/dL (28.0-37.0); MCV 87.6 fL (80.0-100.0); RBC 2.71 mil/uL (4.50-6.00); RDW 16.4 % (10.5-14.5)
[2020-12-17 05:53] LABS: ALBUMIN 1.9 g/dL (3.4-5.0); CREATININE 2.5 mg/dL (0.7-1.3); PHOSPHORUS 3.7 mg/dL (2.6-4.7); POTASSIUM 4.3 mmol/L (3.5-5.1)
[2020-12-17 06:00] LABS: CALCIUM 7.9 mg/dL (8.5-10.1)
[2020-12-17 07:34] VITALS: BP 156/89
[2020-12-17 11:17] VITALS: BP 160/93
[2020-12-17 15:44] VITALS: BP 155/92
[2020-12-17 19:43] VITALS: BP 159/88
--- NOTE | 2020-12-17 20:23 | NUR ---
Assumed pt care vs stable. Diet and medications are tolerated well. REfused insulin and heparin. POC followed with no signs or verbalizations of distress noted. endorsed to the night nurse.
[2020-12-18 00:25] VITALS: BP 156/90
[2020-12-18 04:22] VITALS: BP 155/91
--- NOTE | 2020-12-18 04:31 | NUR ---
Pt. rested quietly at intervals during the night when checked on during frequent rounds. He c/o some abdominal discomfort, but refuses any pain intervention. Pt. also refuses his meds (see emar). Bed alarm is on.
[2020-12-18 07:00] VITALS: BP 154/102
[2020-12-18 11:25] LABS: ALBUMIN 2.1 g/dL (3.4-5.0); CALCIUM 8.1 mg/dL (8.5-10.1); CREATININE 2.5 mg/dL (0.7-1.3); PHOSPHORUS 3.5 mg/dL (2.6-4.7); POTASSIUM 4.9 mmol/L (3.5-5.1)
--- NOTE | 2020-12-18 11:41 | NUR ---
ASSUMED PT CARE THIS AM. PT A&OX4, ABLE TO MAKE NEEDS KNOWN. PATIENT REPORTING NO PAIN, NUMBNESS, OR TINGLING. IV REMAINS PATENT, IV FLUIDS INFUSING WITHOUT ISSUE. PATIENT IS ON 2 LITERS OF OXYGEN VIA NC. PATIENT REMAINS CONTINENT, USING A URINAL AT BEDSIDE. PATIENT HAS DISCOLORATION AND DRY SKIN NOTED TO THE RIGHT FOOT, WHICH PATIENT REPORTS A CHRONIC ISSUE. PATIENT REMAINS ON TELE. FALL PRECAUTIONS ARE IN PLACE, CALL LIGHT WITHIN REACH.
[2020-12-18 12:23] VITALS: BP 160/92
[2020-12-18 17:00] VITALS: BP 159/93
[2020-12-18 19:08] VITALS: BP 151/93
[2020-12-19 03:43] VITALS: BP 142/79
--- NOTE | 2020-12-19 04:11 | NUR ---
PATIENT AOX4 MAKES NEEDS KNOWN. PATIENT DENIED PAIN OR DISCOMFORT. PATIENT HAS EDEMA ON BLE, PATIENT ENCOURAGED TO ELEVATE BLE.PATIENT ON 2L OF OXYGEN NO SOA OR DISTRESS NOTED THIS SHIFT. FALL PRECAUTION IN PLACE. PATIENT IN BED ASLEEP AT THIS TIME BREATHING REGULAR AND UNLABOURED.
[2020-12-19 07:30] VITALS: BP 157/92
[2020-12-19 08:02] LABS: ABSOLUTE NEUTROPHILS 5.2 thou/uL (1.4-8.2); BASOPHILS 0.7 % (0.0-2.0); EOSINOPHILS 2.3 % (0.0-3.0); HEMATOCRIT 26.9 % (42.0-52.0); HEMOGLOBIN 8.6 gm/dL (14.0-18.0); MCH 28.3 pg (26.0-34.0); MCHC 31.8 g/dL (28.0-37.0); MONOCYTES 5.9 % (1.0-8.0); PLATELET COUNT 222 thou/uL (150-400); POLYS 74.1 % (36.0-66.0); RBC 3.03 mil/uL (4.50-6.00); RDW 17.3 % (10.5-14.5)
[2020-12-19 08:22] LABS: % SATURATION 25 % (20-39); IRON 45 ug/dL (65-175); TIBC 178 ug/dL (250-450)
[2020-12-19 08:25] LABS: ALBUMIN 2.1 g/dL (3.4-5.0); CALCIUM 8.4 mg/dL (8.5-10.1); CREATININE 2.3 mg/dL (0.7-1.3); MAGNESIUM 1.7 mg/dL (1.8-2.4); POTASSIUM 4.9 mmol/L (3.5-5.1); TOTAL BILIRUBIN 0.7 mg/dL (0.2-1.0); TOTAL PROTEIN 7.8 g/dL (6.4-8.2)
[2020-12-19 09:02] LABS: FERRITIN 1530 ng/mL (26-388)
--- NOTE | 2020-12-19 13:18 | NUR ---
Bjorn visited with haresh, provided education on home health and re-education on home r/t i would rather not have home, was bad last time per haresh. Education that if he can recall who he had, we can use another hh company. Cm went over hh list of choice, ok per haresh to sent referral to [facility]. verified PCP dr Tim Jackson and going to be staying with son leena, lives in [place], do not know his new address, and good luck reaching him, he works 7 day a week per haresh. Cm left message for leena [phone], requested call back, also called ban [phone], requested call back. Will cont following as needed for dc needs. Discussed during los with hospitalist, dc home today with hh.
[2020-12-19] MEDS ORDERED: NORVASC5 MG PO (13:40)
--- NOTE | 2020-12-19 14:08 | NUR ---
ASSUMED PT CARE THIS AM. PT A&OX4 AND ABLE TO MAKE NEEDS KNOWN. PATIENT REPORTING NO PAIN, NUMBNESS, OR TINGLING. PATIENT REFUSED HEPARIN AND INSULIN TODAY. PATIENT REMAINS CONTINENT, AND IS UP WITH ASSISTANCE AROUND ROOM. PATIENT REMAINS ON 2 LITERS OXYGEN VIA NC. PATIENT REMAINS ON TELEMETRY. IV REMAINS PATENT. FALL PRECAUTIONS ARE IN PLACE, CALL LIGHT WITHIN REACH.
[2020-12-19 22:23] VITALS: BP 161/96
[2020-12-20 00:32] VITALS: BP 153/85
[2020-12-20 04:20] VITALS: BP 160/92
--- NOTE | 2020-12-20 04:47 | NUR ---
patient aox4 makes needs known. patient on 2l of oxygen no soa or distress noted this shift. patient 02 sat is >95% at this time. patient o2 drops on room air. patient refuses most hs meds.fall precation in place. patient in bed asleep at this time breathing regular and unlaboured.
[2020-12-20 07:22] VITALS: BP 149/75
--- NOTE | 2020-12-20 10:45 | NUR ---
ASSUMED PT CARE THIS AM. PT A&OX4, ABLE TO MAKE NEEDS KNOWN. PATIENT REPORTING NO PAIN, NUMBNESS, OR TINGLING. IV REMAINS PATENT, SALINE LOCKED. PATIENT REMAINS CONTINENT, AND AMBULATES WITH ASSIST. PATIENT IS ON 2 LITERS OXYGEN VIA NC. PATIENT REMAINS ON TELE. MEDICAITON TAKEN WITHOUT ISSUE. FALL PRECAUTIONS ARE IN PLACE, CALL LIGHT WITHIN REACH.
[2020-12-20 10:52] LABS: ALBUMIN 1.9 g/dL (3.4-5.0); CALCIUM 8.5 mg/dL (8.5-10.1); CREATININE 2.3 mg/dL (0.7-1.3); PHOSPHORUS 3.3 mg/dL (2.6-4.7); POTASSIUM 4.6 mmol/L (3.5-5.1)
--- NOTE | 2020-12-20 14:46 | NUR ---
CM SPOKE WITH PT'S DTR IN [facility] THIS AM AND SHE CONFIRMED THAT NEITHER SHE AND HER SPOUSE OR PT'S OTHER SON ARE ABLE TO HAVE PT DISCHARGE HOME WITH THEM. CM INDICATED THAT PT HAD EXPRESSED THAT HE WAS PLANNING TO TAKE BUS TO [place] AND CARE TEAM INDICATED HIS IS MEDICALLY STABLE TO DC THIS DAY. CM SPOKE WITH PT ABOUT RESPITE STAY AND PT INDICATED THAT HE COULDN'T AFFORD THAT. CM SPOKE WITH PT ABOUT POSSIBLE GOING TO [facility]. [facility] THEIR LIAISON REACHED OUT TO PT BUT DR. MEANS WAS IN ROOM AN HE ASKED HER TO CALL BACK. [facility] IS ACCEPTING OF PT AND WOULD PROVIDE TRANSPORT THERE THIS AFTERNOON WITH [facility] AND POSSIBLE O2. CM FAXED CLINICAL TO ALDO. CM FOLLOWING WITH HOPEFUL DC TO [facility] WITH [facility] THIS DAY.
--- NOTE | 2020-12-20 15:41 | NUR ---
CM REVIEWED CHART AND SPOKE WITH CARE TEAM. CM MET WITH PT, SPOUSE, AND DTRS RANJEET AND MADI AT BEDSIDE THIS DAY. CM INDICATED THAT IT LOOKED LIKE DR. SALCIDO THOUGHT PT MIGHT BE MEDICALLY STABLE TO DC HOME TOMORROW WITH HH SERVICES. THEY INDICATED NO PREFERANCE FOR HH PROVIDER OPTIONS WERE PROVIDED. THEY ASKED THAT REFERRAL BE SENT TO [facility]. PT MAY NEED HOME 02 UPON DC AND THEY AGAIN INDICATED NO PREFERANCE IN PROVIDER. CM TO AWAITING TESTING AND ORDER THROUGH [facility] IF NEEDED. CM FOLLOWING REGARDING DC PLANNING.
[2020-12-20 16:05] VITALS: BP 149/75
[2020-12-20 19:38] VITALS: BP 141/64
[2020-12-21] VITALS (7 sets, daily range): BP systolic 129–163; BP diastolic 63–92
--- NOTE | 2020-12-21 04:55 | NUR ---
Pt A/OX4,VSS,flat affect. Denies pain,N/V. Up with A/X1 RW/GB. Refused HS insulin/Heparin. NSR on telemetry. Resting w/o distress noted. OBS obtained,pt bowels very hard and formed encouraged to take Miralax as scheduled;he will think about it. Fall precautions in place,calls approp for help.
[2020-12-21 06:41] LABS: CALCIUM 8.3 mg/dL (8.5-10.1); CREATININE 2.3 mg/dL (0.7-1.3); PHOSPHORUS 3.4 mg/dL (2.5-4.9); POTASSIUM 4.3 mmol/L (3.5-5.1)
[2020-12-21 08:21] LABS: HEMATOCRIT 24.8 % (42.0-52.0); HEMOGLOBIN 7.9 gm/dL (14.0-18.0); MCH 28.6 pg (26.0-34.0); MCHC 31.9 g/dL (28.0-37.0); MCV 89.5 fL (80.0-100.0); RBC 2.77 mil/uL (4.50-6.00); RDW 18.1 % (10.5-14.5); WBC 6.1 thou/uL (4.0-11.0)
--- NOTE | 2020-12-21 15:06 | NUR ---
[facility] ASKED FOR A MEDICAID APPLICATION. [facility] MET WITH PT AND ASSESSED. IT WAS DETERMINED THAT PT HAS ACTIVE [place] MEDICAID UNTIL 01/01. [place] MEDIC[place] APPLICATION WAS FILED. CM FAXED COPY TO ALDO AT [facility]. PT WAS HAVING RESPIRATORY ISSUES AND [facility] INDICATED HE WAS GOING TO DO CHEST XRAY AND ABGS. CM REACHED OUT TO HOSPITALIST FOR INDICATION OF IF PT IS MEDICALLY STABLE TO DC TO [facility] WITH [facility] THIS DAY.
[2020-12-21 16:52] LABS: BE(vivo) -1.3 mmol/L (-2 to +3); HCO3 22.5 mmol/L (22.0-26.0); PCO2 34.1 mmHg (35.0-45.0); pH 7.438 (7.360-7.450); sO2 87.7 % (92.0-98.0)
--- NOTE | 2020-12-21 20:01 | NUR ---
Assumed pt care at 7am. Pt in bed most of the time today. Assessment completed.vss. But reported dc to respite care at [facility] today. But after abg done this afternoon,result wasn't good.Paco2 was [address] Pope notified,order noted. Will continue to monitor.
[2020-12-22] VITALS (7 sets, daily range): BP systolic 132–158; BP diastolic 58–89
[2020-12-22 06:29] LABS: CALCIUM 8.4 mg/dL (8.5-10.1); CREATININE 2.3 mg/dL (0.7-1.3); MAGNESIUM 1.6 mg/dL (1.8-2.4); POTASSIUM 4.6 mmol/L (3.5-5.1)
--- NOTE | 2020-12-22 07:30 | NUR ---
Pt A/OX4,VSS,Denies pain on assesssment. Up with AX1 RW/GB. Pt refused to take insulin/heparin at HS okay with Tums. Continent of B&B,voiding adequately per urinal. NSR on telemetry. Fall precautions in place,calls approp for help.
--- NOTE | 2020-12-22 14:13 | NUR ---
PT HAVING A VQ SCAN AND A DOPPLER. PT ON LAZIX. CM FOLLOWING REGARGING DC PLANNING. PT TO GO TO [facility] ONCE MEDICALLY STABLE.
--- NOTE | 2020-12-22 15:54 | NUR ---
Assumed pt care at 7am. Pt in bed most of the time today resting and watching tv. Assessment completed.vss. Pt refused heparin and insulin today. Assisted with tray setup. Good appetite noted.Dr Pope here,order noted.Pt left for lung vq scan after lunch and report shows probable pulmonary emboli and elevated ddimer. Pt will be transfer [facility] before shift change. Nsg supervisor compounding and finishing notified.Will continue to monitor.
--- NOTE | 2020-12-22 16:45 | NUR ---
CARE TEAM INDICATED THAT PT HAD PE AND IS BEING TRANSFERED TO CCU THIS DAY. CM JAMISONATED ALDO LIAISON WITH [facility]. CM FOLLOWING REGARDING DC PLANNING.
[2020-12-23 04:12] VITALS: BP 153/85; BP 1536/85
--- NOTE | 2020-12-23 06:06 | NUR ---
PT ARRIVED TO 3W FROM 4W DUE TO POSSIBLE PE INDICATED ON VQ SCAN. VSS OVERNIGHT AND 02 SATURATIONS ON 4L WERE IN HIGH 90'S. PT VOIDING VIA URINAL. FOLLOWING POC. HOURLY ROUNDING AND CALL LIGHT WITHIN REACH.
[2020-12-23 06:58] LABS: HEMATOCRIT 26.2 % (42.0-52.0); HEMOGLOBIN 8.7 gm/dL (14.0-18.0); MCH 29.2 pg (26.0-34.0); MCV 88.5 fL (80.0-100.0); RBC 2.97 mil/uL (4.50-6.00); RDW 18.7 % (10.5-14.5); WBC 5.5 thou/uL (4.0-11.0)
[2020-12-23 07:16] VITALS: BP 143/83
[2020-12-23 07:33] LABS: CALCIUM 8.2 mg/dL (8.5-10.1); CREATININE 2.3 mg/dL (0.7-1.3); MAGNESIUM 1.6 mg/dL (1.8-2.4); POTASSIUM 4.5 mmol/L (3.5-5.1); TOTAL BILIRUBIN 0.6 mg/dL (0.2-1.0); TOTAL PROTEIN 7.1 g/dL (6.4-8.2)
[2020-12-23 11:19] VITALS: BP 140/68
--- NOTE | 2020-12-23 12:52 | 2DMMODE ---
[facility] [address] [email or web address] [address] 2 D/M-MODE ECHOCARDIOGRAM Name: SAUD FITZGERALD Room #: 358- ADM IN .R.#: [id number] Admission: 12/15/20 Attend Phys: Grady Santos MD Discharge: Date of : 43 Report #: [id number] THIS REPORT FOR: cc: [facility] - Clinic physician unknown [facility] - Clinic physician unknown LammogliJerald taylor MD ~ APPROVED REPORT Study performed: 12/23/2020 10:35:04 EXAM: Limited 2D, Doppler, and color-flow Echocardiogram Patient Location: Bedside Status: routine BSA: 1.98 HR: 75 bpm BP: 143/83 mmHg Rhythm: NSR Other Information Study Quality: Adequate Indications Limited follow up echo. Recent PE. (Compete echo done 11/17/20). 2D Dimensions IVSd: 9.32 (7-11mm) LVDd: 51.83 mm PWd: 7.70 (7-11mm) LVDs: 41.76 (25-40mm) Aortic Valve AoV Peak Connor.: 1.09 m/s AO Peak Gr.: 4.71 mmHg Tricuspid Valve TR Peak Connor.: 3.09 m/s RAP Estimate: 10.00 mmHg TR Peak Gr.: 38.24 mmHg PA Pressure: 48.00 mmHg Left Ventricle The left ventricle is normal size. Regional wall motion abnormalities are noted. There is normal left ventricular wall thickness. Left ventricular systolic function is mildly decreased. LVEF is [facility] [address] [place] [address] 2 D/M-MODE ECHOCARDIOGRAM Name: SAUD FITZGERALD Room #: 358-P ADM IN .R.#: [id number] Admission: 12/15/20 Attend Phys: Grady Santos MD Discharge: Date of : 43 Report #: [id number] 45%. Right Ventricle The right ventricle is normal size. The right ventricular systolic function is normal. Atria Left atrium is mildly dilated. The right atrium size is normal. Aortic Valve The aortic valve is not well visualized. No aortic regurgitation is present. There is no aortic valvular stenosis. Mitral Valve Mitral valve leaflets are thickened. Mild mitral annular calcification. Moderate mitral regurgitation. Tricuspid Valve The tricuspid valve is normal in structure. Trace tricuspid regurgitation. Estimated PAP is 48mmHg. Great Vessels IVC is dilated and collapses <50% with inspiration. Pericardium There is no pericardial effusion. Bilateral large pleural effusions noted. <Conclusion> The left ventricle is normal size. Left ventricular systolic function is mildly decreased. LVEF is 45%. The right ventricle is normal size. Left atrium is mildly dilated. The aortic valve is not well visualized. No aortic regurgitation is present. Mitral valve leaflets are thickened. Mild mitral annular calcification. Moderate mitral regurgitation. The tricuspid valve is normal in structure. Trace tricuspid regurgitation. Estimated PAP is 48mmHg. [facility] [address] [place] [address] 2 D/M-MODE ECHOCARDIOGRAM Name: SUAD FITZGERALD Room #: 358-P ADM IN M.R.#: [id number] Admission: 12/15/20 Attend Phys: Grady Santos MD Discharge: Date of : 43 Report #: [id number] There is no pericardial effusion. Bilateral large pleural effusions noted. <ELECTRONICALLY SIGNED> By: Jerald Ortez MD 12/23/20 1252 1252 51 Jerald Ortez MD /INF
[2020-12-23 15:19] VITALS: BP 137/74
--- NOTE | 2020-12-23 15:32 | NUR ---
ABRAN reviewed chart and spoke with nursing and attending physician. Pt was transferred to from 4W to r/o PE. Pt is on 4L of O2. Will need rest/exercise oximetry ordered prior to discharge. Pt will be discharging to [facility]. Weekend discharge anticipated. SW left voice message for Grisel at [facility] to provide update and discuss weekend discharge. SW updated [facility] liaison. SW met with pt at bedside to discuss discharge plan. Pt is agreeable with plan. SW discussed possible need for home O2 and provided DME options. Pt verbalized understanding and no preference of DME company. SW faxed home O2 referral to [facility] for review. Notified [facility] liaison. Will need rest/exercise oximetry results and O2 script faxed to [facility] if home O2 is needed. Discharge ppwk to be faxed to [facility] and [facility] when available. [facility] to be contacted to coordinate discharge plan. Will need chart copy. ABRAN is following to assist as needed with discharge planning. [facility]-- [facility]: [phone] [facility] [place] [facility]--
--- NOTE | 2020-12-23 16:42 | NUR ---
PT IS ALERT AND ORIENTED X4. PT IS ON 4L NC AND TOLERATING WELL. SR WITH BBB ON THE MONITOR. PT USES URINAL AT BEDSIDE. DENIES ANY PAIN OR DISCOMFORT AT THIS TIME. WILL CONTINUE TO MONITOR.
[2020-12-23 19:17] VITALS: BP 138/75
[2020-12-24 04:59] VITALS: BP 130/60
[2020-12-24 05:33] LABS: HEMATOCRIT 24.8 % (42.0-52.0); HEMOGLOBIN 8.1 gm/dL (14.0-18.0); MCH 28.7 pg (26.0-34.0); MCHC 32.5 g/dL (28.0-37.0); MCV 88.1 fL (80.0-100.0); RBC 2.81 mil/uL (4.50-6.00); RDW 18.9 % (10.5-14.5); WBC 5.9 thou/uL (4.0-11.0)
--- NOTE | 2020-12-24 05:44 | NUR ---
PT IS ALERT AND ORIENTED X4. PT ON 4L O2 NC. VITAL SIGNS STABLE OVERNIGHT. PT UP WITH SBA AND USES URINAL AT BEDSIDE. WILL CONTINUE TO MONITOR.
[2020-12-24 06:04] LABS: CALCIUM 8.3 mg/dL (8.5-10.1); CREATININE 2.6 mg/dL (0.7-1.3); MAGNESIUM 1.6 mg/dL (1.8-2.4); POTASSIUM 4.9 mmol/L (3.5-5.1)
[2020-12-24 06:14] VITALS: BP 149/75
[2020-12-24 07:31] VITALS: BP 145/74
--- NOTE | 2020-12-24 11:26 | NUR ---
PT IS ALERT AND ORIENTED X4. SR WITH BBB ON THE MONITOR AND CURRENTLY ON 4L NC. LUNGS CTA. PT STATES THAT HE IS FEELING BETTER. USES URINAL AT BEDSIDE. ONE TIME DOSE OF IV LASIX GIVEN. RIGHT FOOT 1+ EDEMA. NO COMPLAINTS OF PAIN OR DISCOMFORT AT THIS TIME. WILL CONTINUE TO MONITOR.
[2020-12-24 11:28] VITALS: BP 124/63
[2020-12-24 15:13] VITALS: BP 133/85
[2020-12-24 19:40] VITALS: BP 119/48
--- NOTE | 2020-12-25 00:46 | NUR ---
PT RESTING IN BED. O2 PER NC. PT AWAKENED EASILY FOR ASSESSMENT. LUNGS WHEEZE, PALE SKIN TONE. BED ALARM ON.
[2020-12-25 03:14] VITALS: BP 118/58
[2020-12-25 05:41] LABS: CALCIUM 8.3 mg/dL (8.5-10.1); CREATININE 2.7 mg/dL (0.7-1.3); MAGNESIUM 1.6 mg/dL (1.8-2.4); POTASSIUM 4.8 mmol/L (3.5-5.1)
[2020-12-25 07:35] VITALS: BP 136/69
[2020-12-25 15:06] VITALS: BP 134/65
--- NOTE | 2020-12-25 16:50 | NUR ---
CARE ASSUMED THIS AM, PT ALERT AND ORIENTED X4, SOB WITH EXERTION. DENIES ANY SOB. CURRENTLY ON 1.5L OXYGEN. USES URINAL. PT REFUSES INSULIN. UP TO BATHROOM INDEPENDENTLY. DENIES ANY NEEDS LAURA, WILL CONTINUE TO MONITOR
[2020-12-25 19:13] VITALS: BP 128/57
--- NOTE | 2020-12-25 19:49 | NUR ---
PT RESTING IN BED WATCHING TV. TAPERED NC TO 1L. LUNGS WITH WHEEZES. PALE SKIN TONE. FLAT AFFECT BUT PLEASANT WITH CONVERSATION. PT STEADY GAIT, CALLS FOR NEEDS.
[2020-12-26 03:09] LABS: HEMATOCRIT 24.5 % (42.0-52.0); MCH 28.7 pg (26.0-34.0); MCHC 32.7 g/dL (28.0-37.0); MCV 87.9 fL (80.0-100.0); RBC 2.79 mil/uL (4.50-6.00); RDW 18.3 % (10.5-14.5); WBC 5.8 thou/uL (4.0-11.0)
[2020-12-26 03:35] LABS: CALCIUM 8.2 mg/dL (8.5-10.1); CREATININE 3.1 mg/dL (0.7-1.3); POTASSIUM 5.4 mmol/L (3.5-5.1)
[2020-12-26 04:29] VITALS: BP 138/66
[2020-12-26 07:15] VITALS: BP 125/65
[2020-12-26 10:49] VITALS: BP 149/75
[2020-12-26] MEDS ORDERED: AMLODIPINE BESY10 MG PO (12:42)
[2020-12-26] MEDS ORDERED: XARELTO20 MG PO (12:42)
[2020-12-26] MEDS ORDERED: XARELTO15 MG PO (12:42)
[2020-12-26 13:52] VITALS: BP 149/75
[2020-12-26 14:04] VITALS: BP 149/75
[2020-12-26 15:52] VITALS: BP 149/75
--- NOTE | 2020-12-26 16:05 | NUR ---
DISCHARGE NOTE: ABRAN reviewed chart and spoke with nursing and attending physician. Pt is medically stable for discharge to [facility] with [facility]. ABRAN faxed discharge ppwk to [facility] and confirmed info was received with [facility]. ABRAN discussed case with [facility] and Grisel. Transportation scheduled for 1600 per facility's arrangements. Rest/exercise oximetry completed this afternoon. Pt does not qualify for home O2. ABRAN updated [facility] liaison. ABRAN notified [facility] liaison of pt's discharge. ABRAN met with pt at bedside to provide update and discuss discharge plan. Pt is aware and agreeable. Chart copy completed. No additional SW needs identified at this time, but is available to assist should needs arise.
--- NOTE | 2020-12-26 16:45 | NUR ---
PT DISCHARGED PER TRANSPORTER TO [facility] WITH HOME HEALTH..NO O2 NEEDED..SENT WITH SUITCASE AND [facility]ER [facility]E.......
== END 2020-12-26 16:49 | disposition home health service (06) | DRG 175 ==
LOC: ER 15:59 → EROBS 18:31 → 4W 18:31 → 3W 12-22 18:39
PROVIDERS: Hospitalist; Internal Medicine; Internal Medicine Nephrology; Nurse Practitioner; Nurse Practitioner Adult Health; ADMIT Hospitalist; ATTEND Hospitalist
DX: I26.99 Other pulmonary embolism without acute cor pulmonale (principal); E43 Unspecified severe protein-calorie malnutrition; J96.21 Acute and chronic respiratory failure with hypoxia; R65.11 Systemic inflammatory response syndrome (SIRS) of non-infectious origin with acute organ dysfunction; I13.0 Hypertensive heart and chronic kidney disease with heart failure and stage 1 through stage 4 chronic kidney disease, or unspecified chronic kidney disease; N17.9 Acute kidney failure, unspecified; I50.32 Chronic diastolic (congestive) heart failure; E11.22 Type 2 diabetes mellitus with diabetic chronic kidney disease; Z66 Do not resuscitate; D63.8 Anemia in other chronic diseases classified elsewhere; E11.42 Type 2 diabetes mellitus with diabetic polyneuropathy; R53.81 Other malaise; N18.30 Chronic kidney disease, stage 3 unspecified; Z20.822 Contact with and (suspected) exposure to COVID-19; Z90.49 Acquired absence of other specified parts of digestive tract; Z89.421 Acquired absence of other right toe(s); Z88.8 Allergy status to other drugs, medicaments and biological substances; Z68.22 Body mass index [BMI] 22.0-22.9, adult; Z82.49 Family history of ischemic heart disease and other diseases of the circulatory system; Z86.14 Personal history of Methicillin resistant Staphylococcus aureus infection; Z59.00 Homelessness unspecified
CPT/HCPCS: 10045; 10879